=== PATIENT | male | born 1940 | race Caucasian/White ===

== ENCOUNTER → 2017-11-16 | Outpatient (CLI) | payer OTHER | LOC: M SMT 08:50 | DX: J62.0 Pneumoconiosis due to talc dust (principal) | CPT/HCPCS: 71046 ==

== ENCOUNTER → 2018-11-22 | Outpatient (CLI) | payer OTHER ==
--- NOTE | 2018-11-23 04:01 | REP ---
Clinical: Pneumoconiosis. Technique: PA and lateral. Comparison: 11/16/2017. Findings: Chronic pleuroparenchymal changes and postsurgical changes involving the left hemithorax remains stable. Underlying chronic COPD and emphysematous changes with right upper lobe bullae again identified. No obvious acute consolidation, effusion, or pneumothorax. Skeletal structures stable. Impression: Chronic stable changes. Electronically Signed by Gerber Weiss MD 11/23/2018 03:52 A
== END ==
LOC: M SMT 09:25
PROVIDERS: ATTEND Internal Medicine Pulmonary Disease
DX: J62.0 Pneumoconiosis due to talc dust (principal)

== ENCOUNTER → 2020-02-21 | Outpatient (CLI) | payer OTHER ==
--- NOTE | 2020-02-22 13:17 | REP ---
Two-view chest: 02/21/2020. Indication: Pneumoconiosis. Comparison: 11/22/2018. Findings: Chronic pleural parenchymal and postoperative changes are redemonstrated. There is scarring within the left lung. The lungs are hyperinflated including redemonstration of right upper and likely middle lobe bullae. There is no significant pleural effusion or pneumothorax. The cardiac silhouette is normal in size. Impression: There is no evidence of an acute pulmonary consolidation. Stable chronic changes. Electronically Signed by Faheem Padgett DO 02/22/2020 01:09 P
== END ==
LOC: M LAB 08:55
PROVIDERS: ATTEND Internal Medicine Pulmonary Disease
DX: J62.0 Pneumoconiosis due to talc dust (principal)

== ENCOUNTER → 2021-10-05 | Outpatient (REF) | payer MEDICARE ==
[2021-10-05 18:50] LABS: APPEARANCE, URINE HAZY (CLEAR); BACTERIA, URINE AUTO 1+ (NEGATIVE); BILIRUBIN, URINE AUTO NEGATIVE (NEGATIVE); BLOOD, URINE BLOOD NEGATIVE (NEGATIVE); COLOR, URINE YELLOW (YELLOW); GLUCOSE, URINE (UA) AUTO 3+ mg/dL (NEGATIVE); KETONE, URINE AUTO NEGATIVE (NEGATIVE); LEUKOCYTE ESTERASE, URINE AUTO 2+ (NEGATIVE); MUCUS, URINE SMALL (NEGATIVE); NITRITE, URINE AUTO POSITIVE (NEGATIVE); PROTEIN, URINE AUTO NEGATIVE (NEGATIVE); RBC, URINE AUTO 3 /HPF (0-3); SPECIFIC GRAVITY URINE AUTO 1.026 (1.002-1.035); SQUAMOUS EPITHELIAL CELL UR AU 0 /HPF (0-6); UROBILINOGEN, URINE AUTO 0.2 mg/dL (0.0-2.0); WBC, URINE AUTO 45 /HPF (0-3)
== END ==
LOC: M SMT 16:47
PROVIDERS: ATTEND Physician Assistant
DX: R97.20 Elevated prostate specific antigen [PSA] (principal); Z79.899 Other long term (current) drug therapy